=== PATIENT | female | born 1945 | race Caucasian/White ===

== ENCOUNTER 2016-05-24 18:20 | Inpatient (IN) | payer MEDICARE, OTHER ==
[~2016-05-24] VITALS: Ht 157.5 cm; Wt 60.2 kg
[~2016-05-24 18:20] MED LIST: ASPIRIN 81M81 MG/TA2 PO; CALCIUM500 MG PO; CLARITIN 1010 MG/TAB PO; EPA1000 MG PO; HYZAAR 25 MG-101 TAB PO; LEVAQUIN 750MG750 M1 PO; LOPRESSOR 225 MG/TAB PO; NATURAL E400 IU PO; PROAIR HFA0.09 MG/AC IH; RT ADVAIR 228 DISKUS IH; RT SPIRIVA18 MCG IH; SINGULAIR 110 MG/TAB PO; TOPROL XL 25MG25 MG PO; VITAMIN C500 MG PO; VITAMIN D1000 IU PO; XANAX 0.5MG0.5 MG PO; XANAX 1MG1 MG PO
[2016-05-24 18:32] VITALS: BP 141/60; PULSE 100; TEMP 97.2
[2016-05-24] MEDS ORDERED: PRAVACHOL10 MG PO (18:49)
[2016-05-24] MEDS ORDERED: KLOR-CON 1010 MEQ PO (18:50)
[2016-05-24] MEDS ORDERED: CALCIUM 600MG+D1 TAB PO (18:55)
[2016-05-24] MEDS ORDERED: ASPIRIN 81M81 MG/TA2 PO (18:56)
[2016-05-24 20:46] VITALS: BP 118/52; PULSE 94; TEMP 97
[2016-05-24 21:40] LABS: CREATININE, serum 0.83 mg/dL (0.52-1.25)
[2016-05-25 00:59] VITALS: BP 124/50; PULSE 108; TEMP 97.4
[2016-05-25 05:12] VITALS: BP 119/45; PULSE 87; TEMP 98.2
[2016-05-25 07:52] LABS: MEAN CELL VOLUME 78 fl (80.0-100.0); MEAN CORPUSCULAR HGB CONC 33 g/dl (33.0-37.0); MEAN PLATELET VOLUME 9.7 fl (7.4-10.4); PLATELET COUNT 350 K/mm3 (130-400); RED BLOOD COUNT 3.94 M/mm3 (4.10-5.30); REDCELL DISTRIBUTION WIDTH-CV 16.6 % (11.5-14.5); WHITE BLOOD COUNT 7.7 K/mm3 (4.8-10.8)
[2016-05-25 08:00] LABS: ADD PATHOLOGY DIFF REVIEW NO; HEMATOCRIT 30.9 % (37.0-47.0); HEMOGLOBIN 10.1 g/dl (12.5-16.0); MEAN CORPUSCULAR HEMOGLOBIN 26 pg (27.0-31.0)
[2016-05-25 08:12] LABS: CALCIUM 9.1 mg/dL (8.4-10.2); CREATININE, serum 0.75 mg/dL (0.52-1.25); POTASSIUM 4.1 mmol/L (3.4-5.0)
[2016-05-25 08:27] VITALS: BP 133/59; PULSE 103; TEMP 97.6
[2016-05-25 08:29] LABS: BAND 11 % (0-10); BURR CELLS 1+; METAMYELOCYTE 1 % (0-0); NEUTROPHILS 80 % (42.0-75.2); PLATELET ESTIMATE NORMAL (NORMAL); SCHISTOCYTES 1+; TOTAL CELLS COUNTED 100
[2016-05-25 17:23] VITALS: BP 108/56; PULSE 100; TEMP 97.5
[2016-05-25 18:17] LABS: PH 6 (5-8); SQUAMOUS EPITHELIAL 0-2 /hpf; URINE APPEARANCE Clear; URINE BACTERIA None Seen /hpf; URINE BILIRUBIN Negative (NEGATIVE); URINE BLOOD Negative (NEGATIVE); URINE COLOR Yellow; URINE GLUCOSE 1+ (NEGATIVE); URINE KETONE Negative (NEGATIVE); URINE RBC 0-2 /hpf; URINE UROBILINOGEN Negative (NEGATIVE); URINE WBC 0-2 /hpf
[2016-05-25 20:00] VITALS: TEMP 98
[2016-05-25 20:36] VITALS: BP 125/41; PULSE 101
[2016-05-26] VITALS (7 sets, daily range): BP systolic 102–151; BP diastolic 51–84; PULSE 94–122; TEMP 97.1–101.5
[2016-05-27 04:19] VITALS: BP 151/75; PULSE 117; TEMP 101.1
[2016-05-27 07:25] LABS: MEAN CELL VOLUME 80 fl (80.0-100.0); MEAN CORPUSCULAR HGB CONC 32 g/dl (33.0-37.0); MEAN PLATELET VOLUME 9.6 fl (7.4-10.4); PLATELET COUNT 273 K/mm3 (130-400); RED BLOOD COUNT 3.28 M/mm3 (4.10-5.30); REDCELL DISTRIBUTION WIDTH-CV 17.2 % (11.5-14.5); WHITE BLOOD COUNT 11.7 K/mm3 (4.8-10.8)
[2016-05-27 07:27] LABS: HEMATOCRIT 26.2 % (37.0-47.0); HEMOGLOBIN 8.5 g/dl (12.5-16.0); MEAN CORPUSCULAR HEMOGLOBIN 26 pg (27.0-31.0)
[2016-05-27 07:38] LABS: BAND 9 % (0-10); MYELOCYTE 2 % (0-0); NEUTROPHILS 86 % (42.0-75.2); PLATELET ESTIMATE NORMAL (NORMAL); TOTAL CELLS COUNTED 100
[2016-05-27 07:39] LABS: ADD PATHOLOGY DIFF REVIEW YES; OVALOCYTES 2+; SCHISTOCYTES 1+
[2016-05-27 10:28] VITALS: BP 150/76; PULSE 79; TEMP 100.5
[2016-05-27 15:34] VITALS: BP 156/57; PULSE 118; TEMP 101.6
[2016-05-27 21:01] VITALS: BP 125/66; PULSE 96; TEMP 99.7
[2016-05-28 00:18] VITALS: BP 151/88; PULSE 103; TEMP 100.8
[2016-05-28 04:15] VITALS: BP 147/77; PULSE 108; TEMP 100.6
[2016-05-28 08:04] VITALS: BP 144/75; PULSE 98; TEMP 97.8
[2016-05-28 08:26] LABS: PATHOLOGY DIFF REVIEW OK
[2016-05-28 13:39] VITALS: BP 143/61; PULSE 92; TEMP 100.6
[2016-05-28 16:09] VITALS: BP 125/80; PULSE 105; TEMP 98.7
[2016-05-28 21:09] VITALS: BP 137/86; PULSE 117; TEMP 100.5
[2016-05-29] VITALS (12 sets, daily range): BP systolic 130–185; BP diastolic 60–101; PULSE 96–116; TEMP 98.8–100.7
[2016-05-30 04:22] VITALS: BP 139/83; PULSE 101; TEMP 98.1
[2016-05-30 06:28] LABS: BASO % 0.1 % (0.0-2.0); EOS # 0.1 (0.0-0.7); EOS % 0.7 % (0-4.0); GRAN # 8.7 (1.4-6.5); GRAN % 86.7 % (42.2-75.2); LYMPH # 0.6 (1.2-3.4); LYMPH % 5.7 % (20.0-51.0); MEAN CELL VOLUME 78 fl (80.0-100.0); MEAN CORPUSCULAR HGB CONC 33 g/dl (33.0-37.0); MEAN PLATELET VOLUME 9.5 fl (7.4-10.4); MONO # 0.6 (0.1-0.6); MONO % 5.9 % (1.7-9.3); PLATELET COUNT 252 K/mm3 (130-400); RED BLOOD COUNT 3.15 M/mm3 (4.10-5.30); REDCELL DISTRIBUTION WIDTH-CV 17.6 % (11.5-14.5)
[2016-05-30 06:33] LABS: HEMATOCRIT 24.6 % (37.0-47.0); HEMOGLOBIN 8.1 g/dl (12.5-16.0); MEAN CORPUSCULAR HEMOGLOBIN 26 pg (27.0-31.0)
[2016-05-30 06:38] LABS: CALCIUM 8.4 mg/dL (8.4-10.2); CREATININE, serum 0.88 mg/dL (0.52-1.25); MAGNESIUM 1.3 mg/dL (1.6-2.3); PHOSPHOROUS 3.7 mg/dL (2.5-4.5); POTASSIUM 3.1 mmol/L (3.4-5.0)
[2016-05-30 07:31] VITALS: BP 143/73; PULSE 105; TEMP 98.9
[2016-05-30 10:49] LABS: PH 5 (5-8); SQUAMOUS EPITHELIAL 0-2 /hpf; URINE APPEARANCE Hazy; URINE BACTERIA None Seen /hpf; URINE BILIRUBIN Negative (NEGATIVE); URINE BLOOD Negative (NEGATIVE); URINE COLOR Yellow; URINE GLUCOSE Negative (NEGATIVE); URINE KETONE Negative (NEGATIVE); URINE RBC 20-50 /hpf; URINE UROBILINOGEN Negative (NEGATIVE)
[2016-05-30 11:36] VITALS: BP 162/90; PULSE 114; TEMP 98.9
[2016-05-30 12:23] LABS: INR 1.2 (0.8-3.0); PROTHROMBIN TIME 13.4 SECONDS (9.7-12.8)
[2016-05-30 13:57] LABS: PLEURAL FLUID - PMN 30.9 % (0-25)
[2016-05-30 13:58] LABS: PLEURAL FLUID APPEARANCE HAZY; PLEURAL FLUID COLOR YELLOW
[2016-05-30 13:59] LABS: PLEURAL FLUID RIGHT SIDE
[2016-05-30 14:05] LABS: GLUCOSE,PLEURAL FLUID 85 mg/dL
[2016-05-30 15:40] VITALS: BP 149/45; PULSE 120; TEMP 100.4
[2016-05-30 19:31] VITALS: BP 131/70; PULSE 106; TEMP 98.7
[2016-05-31] VITALS (7 sets, daily range): BP systolic 109–145; BP diastolic 50–94; PULSE 100–125; TEMP 98.4–101.3
[2016-05-31 05:31] LABS: POTASSIUM 3.9 mmol/L (3.4-5.0)
[2016-05-31 15:48] LABS: MTB COMPLEX Negative (())
[2016-06-01 05:17] VITALS: BP 128/93; PULSE 113; TEMP 100.2
[2016-06-01 08:39] LABS: POTASSIUM 4.5 mmol/L (3.4-5.0)
[2016-06-01 08:41] VITALS: BP 139/86; PULSE 124; TEMP 98.3
[2016-06-01 10:26] LABS: BASO % 0.1 % (0.0-2.0); EOS # 0.1 (0.0-0.7); EOS % 1.4 % (0-4.0); GRAN # 6.5 (1.4-6.5); GRAN % 81.4 % (42.2-75.2); LYMPH # 0.7 (1.2-3.4); LYMPH % 8.3 % (20.0-51.0); MEAN CELL VOLUME 80 fl (80.0-100.0); MEAN CORPUSCULAR HGB CONC 33 g/dl (33.0-37.0); MEAN PLATELET VOLUME 10.3 fl (7.4-10.4); MONO # 0.6 (0.1-0.6); PLATELET COUNT 248 K/mm3 (130-400); RED BLOOD COUNT 3.12 M/mm3 (4.10-5.30); REDCELL DISTRIBUTION WIDTH-CV 18.2 % (11.5-14.5)
[2016-06-01 10:29] LABS: HEMATOCRIT 24.9 % (37.0-47.0); HEMOGLOBIN 8.1 g/dl (12.5-16.0); MEAN CORPUSCULAR HEMOGLOBIN 26 pg (27.0-31.0)
[2016-06-01 10:40] LABS: ADJUSTED CALCIUM 10.5 mg/dL (8.4-10.2); ALBUMIN 2.5 gm/dL (3.5-5.0); BILIRUBIN,TOTAL 0.7 mg/dL (0.0-1.0); CALCIUM 9.3 mg/dL (8.4-10.2); CREATININE, serum 0.72 mg/dL (0.52-1.25); MAGNESIUM 1.8 mg/dL (1.6-2.3); TOTAL PROTEIN 5.5 gm/dL (6.4-8.2)
[2016-06-01 12:19] VITALS: BP 149/97; PULSE 112; TEMP 98.9
[2016-06-01 15:48] VITALS: BP 111/58; PULSE 128; TEMP 100.3
[2016-06-01 20:31] VITALS: BP 140/72; PULSE 111; TEMP 99.8
[2016-06-01 23:31] VITALS: BP 151/61; PULSE 99; TEMP 99.1
[2016-06-02 06:56] VITALS: BP 141/79; PULSE 117; TEMP 99.8
[2016-06-02 07:49] LABS: BASO % 0.2 % (0.0-2.0); EOS # 0.1 (0.0-0.7); EOS % 0.9 % (0-4.0); GRAN # 8.7 (1.4-6.5); GRAN % 86.1 % (42.2-75.2); LYMPH % 5.7 % (20.0-51.0); MEAN CELL VOLUME 80 fl (80.0-100.0); MEAN CORPUSCULAR HGB CONC 32 g/dl (33.0-37.0); MEAN PLATELET VOLUME 10.2 fl (7.4-10.4); MONO # 0.6 (0.1-0.6); MONO % 6.4 % (1.7-9.3); PLATELET COUNT 274 K/mm3 (130-400); RED BLOOD COUNT 3.06 M/mm3 (4.10-5.30); WHITE BLOOD COUNT 10.1 K/mm3 (4.8-10.8)
[2016-06-02 08:03] LABS: HEMATOCRIT 24.4 % (37.0-47.0); HEMOGLOBIN 7.8 g/dl (12.5-16.0); MEAN CORPUSCULAR HEMOGLOBIN 25 pg (27.0-31.0)
[2016-06-02 08:04] LABS: LYMPH # 0.6 (1.2-3.4)
[2016-06-02 08:19] VITALS: BP 141/59; PULSE 117; TEMP 99.1
[2016-06-02 13:05] VITALS: BP 127/64; PULSE 107; TEMP 99.2
[2016-06-02 15:33] VITALS: BP 125/77; PULSE 113; TEMP 98.8
== END 2016-06-02 18:50 | disposition short-term general hospital (02) | DRG 853 ==
LOC: MEDICAL 18:20
PROVIDERS: Internal Medicine; Internal Medicine Pulmonary Disease; Nurse Practitioner Family
PROC: 0BBC8ZX Excision of Right Upper Lung Lobe, Via Natural or Artificial Opening Endoscopic, Diagnostic (ICD-10-PCS; principal; 2016-05-25 11:00)
PROC: 0W993ZX Drainage of Right Pleural Cavity, Percutaneous Approach, Diagnostic (ICD-10-PCS; 2016-05-29)
PROC: 0B948ZX Drainage of Right Upper Lobe Bronchus, Via Natural or Artificial Opening Endoscopic, Diagnostic (ICD-10-PCS; 2016-05-29)
PROC: 0B988ZX Drainage of Left Upper Lobe Bronchus, Via Natural or Artificial Opening Endoscopic, Diagnostic (ICD-10-PCS; 2016-05-29)
DX: A41.9 Sepsis, unspecified organism (principal); J18.9 Pneumonia, unspecified organism; J96.01 Acute respiratory failure with hypoxia; E87.1 Hypo-osmolality and hyponatremia; J90 Pleural effusion, not elsewhere classified; E44.0 Moderate protein-calorie malnutrition; J98.4 Other disorders of lung; J44.9 Chronic obstructive pulmonary disease, unspecified; I10 Essential (primary) hypertension; Z85.3 Personal history of malignant neoplasm of breast; Z87.891 Personal history of nicotine dependence; B97.29 Other coronavirus as the cause of diseases classified elsewhere
CPT/HCPCS: 99223-AI; 99232-AI; 99233-AI; 99239; C1751; J0456; J1450; J1644; J1650; J2060; J2543; J2704; J3370; J3475; J3480; J7030; J7050; J7120

== ENCOUNTER 2016-06-11 12:50 | Inpatient (IN) | payer MEDICARE, OTHER ==
[~2016-06-11] VITALS: Ht 157.5 cm; Wt 54.3 kg
[~2016-06-11 12:50] MED LIST changes: +CALCIUM 600MG+D1 TAB PO; +KLOR-CON 1010 MEQ PO; +PRAVACHOL10 MG PO
[2016-06-11 14:36] VITALS: BP 114/75; PULSE 99; TEMP 97.8
[2016-06-12 04:44] VITALS: BP 124/64; PULSE 77; TEMP 97.1
[2016-06-12 17:24] VITALS: PULSE 103; TEMP 97.6
[2016-06-12 18:00] VITALS: BP 113/59
[2016-06-13 04:32] VITALS: BP 125/63; PULSE 77; TEMP 99.2
[2016-06-13 07:01] LABS: CALCIUM 9.7 mg/dL (8.4-10.2); CREATININE, serum 0.55 mg/dL (0.52-1.25); MAGNESIUM 1.5 mg/dL (1.6-2.3); POTASSIUM 3.5 mmol/L (3.4-5.0)
[2016-06-13 08:14] LABS: BASO # 0.1 (0.0-0.2); BASO % 0.6 % (0.0-2.0); EOS # 0.1 (0.0-0.7); EOS % 0.7 % (0-4.0); GRAN # 6.8 (1.4-6.5); GRAN % 80.6 % (42.2-75.2); LYMPH # 0.4 (1.2-3.4); LYMPH % 4.2 % (20.0-51.0); MEAN CELL VOLUME 83 fl (80.0-100.0); MEAN CORPUSCULAR HGB CONC 33 g/dl (33.0-37.0); MEAN PLATELET VOLUME 9.3 fl (7.4-10.4); MONO # 1.1 (0.1-0.6); MONO % 12.6 % (1.7-9.3); PLATELET COUNT 560 K/mm3 (130-400); RED BLOOD COUNT 4.27 M/mm3 (4.10-5.30); REDCELL DISTRIBUTION WIDTH-CV 17.1 % (11.5-14.5); WHITE BLOOD COUNT 8.4 K/mm3 (4.8-10.8)
[2016-06-13 08:17] LABS: HEMATOCRIT 35.3 % (37.0-47.0); HEMOGLOBIN 11.5 g/dl (12.5-16.0); MEAN CORPUSCULAR HEMOGLOBIN 27 pg (27.0-31.0)
[2016-06-13 15:57] VITALS: BP 97/56; PULSE 92; TEMP 97.4
[2016-06-14 05:38] VITALS: BP 116/51; PULSE 102; TEMP 97.8
[2016-06-14 16:56] VITALS: BP 121/64; PULSE 109; TEMP 97.4
[2016-06-15 04:26] VITALS: BP 118/86; PULSE 93; TEMP 98.2
[2016-06-15 16:57] VITALS: BP 112/51; PULSE 93; TEMP 97.7
[2016-06-16 05:21] VITALS: BP 130/73; PULSE 83; TEMP 97.6
[2016-06-16 18:11] VITALS: BP 112/61; PULSE 83; TEMP 97.7
[2016-06-16 21:00] VITALS: BP 168/77; PULSE 81
[2016-06-17 06:00] VITALS: BP 136/68; PULSE 99; TEMP 99.4
[2016-06-17 16:56] VITALS: BP 106/60; PULSE 91; TEMP 97.8
[2016-06-18 06:10] VITALS: BP 133/76; PULSE 91; TEMP 97.9
[2016-06-18 08:10] LABS: CREATININE, serum 0.87 mg/dL (0.52-1.25); MAGNESIUM 1.8 mg/dL (1.6-2.3); POTASSIUM 3.8 mmol/L (3.4-5.0)
[2016-06-18 16:47] VITALS: BP 121/61; PULSE 86; TEMP 97.5
[2016-06-18 21:00] VITALS: BP 133/64; PULSE 88
[2016-06-19 07:23] VITALS: BP 144/85; PULSE 96; TEMP 98.4
[2016-06-19 16:59] VITALS: BP 118/65; PULSE 91; TEMP 97.6
[2016-06-20 04:21] VITALS: BP 131/75; PULSE 89; TEMP 97.5
[2016-06-20 17:10] VITALS: BP 124/50; PULSE 88; TEMP 98
[2016-06-21 04:29] VITALS: BP 139/58; PULSE 89; TEMP 97.2
[2016-06-21 17:37] VITALS: BP 105/47; PULSE 84; TEMP 97.9
[2016-06-22 05:57] VITALS: BP 115/50; PULSE 91; TEMP 97
[2016-06-22 16:30] VITALS: BP 128/61; PULSE 90; TEMP 98.5
[2016-06-23 04:14] VITALS: BP 124/44; PULSE 96; TEMP 98.2
[2016-06-23 16:13] VITALS: PULSE 86; TEMP 97.7
[2016-06-24 05:06] VITALS: BP 140/68; PULSE 82; TEMP 98.2
[2016-06-24 18:31] VITALS: BP 141/75; PULSE 87; TEMP 98
[2016-06-25 04:57] VITALS: BP 129/51; PULSE 68; TEMP 97.2
[2016-06-25 08:10] LABS: BASO # 0.1 (0.0-0.2); BASO % 0.5 % (0.0-2.0); EOS # 0.1 (0.0-0.7); EOS % 0.6 % (0-4.0); GRAN # 9.9 (1.4-6.5); GRAN % 83.2 % (42.2-75.2); HEMATOCRIT 38.3 % (37.0-47.0); HEMOGLOBIN 12.4 g/dl (12.5-16.0); LYMPH # 0.6 (1.2-3.4); LYMPH % 4.7 % (20.0-51.0); MEAN CELL VOLUME 85 fl (80.0-100.0); MEAN CORPUSCULAR HEMOGLOBIN 27 pg (27.0-31.0); MEAN CORPUSCULAR HGB CONC 32 g/dl (33.0-37.0); MEAN PLATELET VOLUME 10.3 fl (7.4-10.4); MONO # 1.2 (0.1-0.6); MONO % 9.7 % (1.7-9.3); PLATELET COUNT 395 K/mm3 (130-400); RED BLOOD COUNT 4.53 M/mm3 (4.10-5.30); REDCELL DISTRIBUTION WIDTH-CV 16.9 % (11.5-14.5); WHITE BLOOD COUNT 11.9 K/mm3 (4.8-10.8)
[2016-06-25 09:07] LABS: ALBUMIN 2.9 gm/dL (3.5-5.0); BILIRUBIN,TOTAL 1.6 mg/dL (0.0-1.0); CREATININE, serum 2.03 mg/dL (0.52-1.25); POTASSIUM 3.4 mmol/L (3.4-5.0)
[2016-06-25 09:19] LABS: ADJUSTED CALCIUM 15.5 mg/dL (8.4-10.2); CALCIUM 14.6 mg/dL (8.4-10.2)
[2016-06-25 18:20] VITALS: BP 106/67; PULSE 86; TEMP 97.8
[2016-06-25 19:12] LABS: PH 8 (5-8); SQUAMOUS EPITHELIAL 0-2 /hpf; URINE APPEARANCE Hazy; URINE BACTERIA Rare /hpf; URINE BILIRUBIN Negative (NEGATIVE); URINE BLOOD Negative (NEGATIVE); URINE COLOR Amber; URINE GLUCOSE Negative (NEGATIVE); URINE KETONE Negative (NEGATIVE); URINE UROBILINOGEN Negative (NEGATIVE)
[2016-06-26 05:42] VITALS: BP 151/63; PULSE 88; TEMP 98
[2016-06-26 07:33] LABS: CALCIUM 12.1 mg/dL (8.4-10.2); CREATININE, serum 1.87 mg/dL (0.52-1.25); MAGNESIUM 2.9 mg/dL (1.6-2.3); POTASSIUM 3.3 mmol/L (3.4-5.0)
[2016-06-26 18:25] VITALS: BP 133/66; PULSE 90; TEMP 98.1
[2016-06-26 20:30] VITALS: BP 131/76; PULSE 88; TEMP 98.2
[2016-06-27 06:19] VITALS: BP 116/65; PULSE 95; TEMP 98.1
[2016-06-27 13:46] LABS: CALCIUM 10.6 mg/dL (8.4-10.2); CREATININE, serum 1.69 mg/dL (0.52-1.25); MAGNESIUM 2.5 mg/dL (1.6-2.3)
[2016-06-27 14:03] LABS: POTASSIUM 2.9 mmol/L (3.4-5.0)
[2016-06-27 17:42] VITALS: BP 123/32; PULSE 102; TEMP 98.2
[2016-06-28 03:30] VITALS: BP 150/67; PULSE 105; TEMP 98
[2016-06-28 08:33] LABS: CREATININE, serum 1.62 mg/dL (0.52-1.25); POTASSIUM 3.7 mmol/L (3.4-5.0)
[2016-06-28 16:17] LABS: BASO # 0.1 (0.0-0.2); BASO % 0.5 % (0.0-2.0); EOS # 0.1 (0.0-0.7); EOS % 0.5 % (0-4.0); GRAN # 12.1 (1.4-6.5); GRAN % 82.9 % (42.2-75.2); LYMPH # 0.5 (1.2-3.4); LYMPH % 3.3 % (20.0-51.0); MEAN CELL VOLUME 82 fl (80.0-100.0); MEAN CORPUSCULAR HGB CONC 33 g/dl (33.0-37.0); MEAN PLATELET VOLUME 9.5 fl (7.4-10.4); MONO # 1.5 (0.1-0.6); MONO % 10.5 % (1.7-9.3); PLATELET COUNT 336 K/mm3 (130-400); RED BLOOD COUNT 4.05 M/mm3 (4.10-5.30); REDCELL DISTRIBUTION WIDTH-CV 17.2 % (11.5-14.5); WHITE BLOOD COUNT 14.6 K/mm3 (4.8-10.8)
[2016-06-28 16:18] LABS: HEMOGLOBIN 10.8 g/dl (12.5-16.0); MEAN CORPUSCULAR HEMOGLOBIN 27 pg (27.0-31.0)
[2016-06-28 19:00] LABS: PH 6 (5-8); SQUAMOUS EPITHELIAL None Seen /hpf; URINE APPEARANCE Clear; URINE BACTERIA None Seen /hpf; URINE BILIRUBIN Negative (NEGATIVE); URINE BLOOD Negative (NEGATIVE); URINE COLOR Amber; URINE GLUCOSE Negative (NEGATIVE); URINE KETONE Negative (NEGATIVE); URINE UROBILINOGEN Negative (NEGATIVE); URINE WBC 0-2 /hpf
[2016-06-28 19:47] VITALS: BP 133/81; PULSE 98; TEMP 97.6
[2016-06-29 04:27] VITALS: BP 142/63; PULSE 83; TEMP 97.7
[2016-06-29 07:35] LABS: BASO # 0.1 (0.0-0.2); BASO % 0.4 % (0.0-2.0); EOS # 0.1 (0.0-0.7); GRAN # 9.9 (1.4-6.5); GRAN % 83.1 % (42.2-75.2); LYMPH % 4.7 % (20.0-51.0); MEAN CELL VOLUME 82 fl (80.0-100.0); MEAN CORPUSCULAR HGB CONC 32 g/dl (33.0-37.0); MEAN PLATELET VOLUME 9.7 fl (7.4-10.4); MONO # 1.1 (0.1-0.6); MONO % 9.1 % (1.7-9.3); PLATELET COUNT 354 K/mm3 (130-400); RED BLOOD COUNT 4.06 M/mm3 (4.10-5.30); REDCELL DISTRIBUTION WIDTH-CV 17.2 % (11.5-14.5); WHITE BLOOD COUNT 11.9 K/mm3 (4.8-10.8)
[2016-06-29 07:42] LABS: CALCIUM 9.4 mg/dL (8.4-10.2); CREATININE, serum 1.26 mg/dL (0.52-1.25); POTASSIUM 3.5 mmol/L (3.4-5.0)
[2016-06-29 08:07] LABS: HEMATOCRIT 33.4 % (37.0-47.0); HEMOGLOBIN 10.8 g/dl (12.5-16.0); MEAN CORPUSCULAR HEMOGLOBIN 27 pg (27.0-31.0)
[2016-06-29 08:08] LABS: LYMPH # 0.6 (1.2-3.4)
[2016-06-29 09:19] VITALS: BP 143/65; PULSE 106; TEMP 99.5
[2016-06-29 10:17] LABS: ARTERIAL BLD GAS O2 SATURATION 95.8 % (92-100); ARTERIAL BLD GAS TCO2 CT 23.7; ARTERIAL BLOOD GAS BASE EXCESS -0.6 (-2-2); ARTERIAL BLOOD GAS HCO3 22.7 meq/L (22-26); ARTERIAL BLOOD GAS PO2 81.5 mmHg (80-100); ARTERIAL BLOOD GAS pH 7.47 (7.35-7.45)
[2016-06-29 10:18] LABS: ATS? YES
[2016-06-29] MEDS ORDERED: ROCEPHIN VIA1 G/VIAL IV (15:12)
[2016-06-29] MEDS ORDERED: BIAXIN 500MG T500 MG PO (15:13)
[2016-06-29] MEDS ORDERED: VIBRAMYCININJ IV (15:13)
[2016-06-29] MEDS ORDERED: ETHAMBUTOL HYD400 MG PO (15:14)
[2016-06-29] MEDS ORDERED: MEGACE ORAL40 MG/ML PO (15:14)
[2016-06-29] MEDS ORDERED: RIFADIN300 MG PO (15:14)
[2016-06-29] MEDS ORDERED: IPRATROPIUM BROM3 M1 IH (15:15)
[2016-06-29] MEDS ORDERED: FERROUS SU325 MG/TAB PO (15:16)
[2016-06-29] MEDS ORDERED: HEPARIN SOD5000 U/ML SQ (15:16)
[2016-06-29] MEDS ORDERED: NORVASC 5MG5 MG/TAB PO (15:17)
[2016-06-29] MEDS ORDERED: TYLENOL 325MG325 MG PO (15:18)
[2016-06-29] MEDS ORDERED: XANAX .25M0.25 MG/TA PO (15:18)
[2016-06-29] MEDS ORDERED: K-TAB20 PO (15:19)
[2016-06-29] MEDS ORDERED: PHENERGAN W/CO120 M1 PO (15:19)
[2016-06-29] MEDS ORDERED: DULCOLAX S10 MG/SUPP RC (15:29)
[2016-06-29] MEDS ORDERED: FLONASE NASAL S16 GM NS (15:29)
[2016-06-29] MEDS ORDERED: MAG-OX 400400 MG/TAB PO (15:29)
[2016-06-29] MEDS ORDERED: COLACE 100100 MG/CAP PO (15:30)
[2016-06-29] MEDS ORDERED: MIRALAX PA17 GM/Dose PO (15:30)
[2016-06-29] MEDS ORDERED: SENOKOT S 50 MG1 TAB PO (15:30)
[2016-06-29] MEDS ORDERED: ZOFRAN 4MG T4 MG/TAB PO (15:31)
[2016-06-30 09:46] VITALS: BP 143/75; PULSE 105
== END 2016-06-29 16:00 | DRG 947 ==
PROVIDERS: Family Medicine; Internal Medicine; Internal Medicine Pulmonary Disease
DX: R53.81 Other malaise (principal); J18.9 Pneumonia, unspecified organism; J96.01 Acute respiratory failure with hypoxia; J44.0 Chronic obstructive pulmonary disease with (acute) lower respiratory infection; J90 Pleural effusion, not elsewhere classified; N17.9 Acute kidney failure, unspecified; E87.1 Hypo-osmolality and hyponatremia; E46 Unspecified protein-calorie malnutrition; I12.9 Hypertensive chronic kidney disease with stage 1 through stage 4 chronic kidney disease, or unspecified chronic kidney disease; N18.9 Chronic kidney disease, unspecified; J98.4 Other disorders of lung; L60.0 Ingrowing nail; R62.7 Adult failure to thrive; E83.42 Hypomagnesemia
CPT/HCPCS: 99222-AI; 99232-AI; 99233-AI; 99239; J0696; J1644; J7030; J7040

== ENCOUNTER 2016-06-29 16:00 | Inpatient (IN) | payer MEDICARE ==
[~2016-06-29] VITALS: Ht 157.5 cm; Wt 54.3 kg
[~2016-06-29 16:00] MED LIST changes: +BIAXIN 500MG T500 MG PO; +COLACE 100100 MG/CAP PO; +DULCOLAX S10 MG/SUPP RC; +ETHAMBUTOL HYD400 MG PO; +FERROUS SU325 MG/TAB PO; +FLONASE NASAL S16 GM NS; +HEPARIN SOD5000 U/ML SQ; +IPRATROPIUM BROM3 M1 IH; +K-TAB20 PO; +MAG-OX 400400 MG/TAB PO; +MEGACE ORAL40 MG/ML PO; +MIRALAX PA17 GM/Dose PO; +NORVASC 5MG5 MG/TAB PO; +PHENERGAN W/CO120 M1 PO; +RIFADIN300 MG PO; +ROCEPHIN VIA1 G/VIAL IV; +SENOKOT S 50 MG1 TAB PO; +TYLENOL 325MG325 MG PO; +VIBRAMYCININJ IV; +XANAX .25M0.25 MG/TA PO; +ZOFRAN 4MG T4 MG/TAB PO
[2016-06-29 18:21] VITALS: BP 116/89; PULSE 108; TEMP 99.1
[2016-06-29 18:26] VITALS: BP 116/89; PULSE 108; TEMP 99.1
[2016-06-29 22:10] VITALS: BP 126/47; PULSE 52; TEMP 98.2
[2016-06-30] VITALS (12 sets, daily range): BP systolic 114–170; BP diastolic 52–78; PULSE 70–109; TEMP 97.8–98.5
[2016-06-30 05:35] LABS: ARTERIAL BLOOD GAS PO2 69.8 mmHg (80-100); ARTERIAL BLOOD GAS pH 7.48 (7.35-7.45)
[2016-06-30 05:36] LABS: ALLEN TEST YES; ALLENS TEST RESULT PASS; ARTERIAL BLD GAS O2 SATURATION 94.4 % (92-100); ARTERIAL BLD GAS TCO2 CT 25.1; ARTERIAL BLOOD GAS BASE EXCESS 1.1 (-2-2); ARTERIAL BLOOD GAS HCO3 24.1 meq/L (22-26); ATS? YES
[2016-06-30 11:47] LABS: HEMATOCRIT 33.8 % (37.0-47.0); HEMOGLOBIN 11.1 g/dl (12.5-16.0); MEAN CELL VOLUME 83 fl (80.0-100.0); MEAN CORPUSCULAR HEMOGLOBIN 27 pg (27.0-31.0); MEAN CORPUSCULAR HGB CONC 33 g/dl (33.0-37.0); PLATELET COUNT 358 K/mm3 (130-400); RED BLOOD COUNT 4.08 M/mm3 (4.10-5.30); REDCELL DISTRIBUTION WIDTH-CV 17.5 % (11.5-14.5); WHITE BLOOD COUNT 12.6 K/mm3 (4.8-10.8)
[2016-06-30 11:56] LABS: ADD PATHOLOGY DIFF REVIEW NO
[2016-06-30 12:21] LABS: BAND 3 % (0-10); BASOPHIL 0 % (0-2); EOSINOPHIL 3 % (0-4); NEUTROPHILS 83 % (42.0-75.2); TOTAL CELLS COUNTED 100
[2016-06-30 12:24] LABS: ARTERIAL BLD GAS O2 SATURATION 94.4 % (92-100); ARTERIAL BLD GAS TCO2 CT 25.1; ARTERIAL BLOOD GAS BASE EXCESS 1.1 (-2-2); ARTERIAL BLOOD GAS HCO3 24.1 meq/L (22-26); ARTERIAL BLOOD GAS PHT 7.48 C (7.35-7.45); ARTERIAL BLOOD GAS PO2 69.8 mmHg (80-100); ARTERIAL BLOOD GAS PO2T 69.8 (80-100); ARTERIAL BLOOD GAS pH 7.48 (7.35-7.45); OXYHEMOGLOBIN 93.7 %
[2016-06-30 12:25] LABS: ADJUSTED CALCIUM 10.6 mg/dL (8.4-10.2); ALBUMIN 2.5 gm/dL (3.5-5.0); BILIRUBIN,TOTAL 1.4 mg/dL (0.0-1.0); CALCIUM 9.4 mg/dL (8.4-10.2); CREATININE, serum 1.14 mg/dL (0.52-1.25); MAGNESIUM 1.6 mg/dL (1.6-2.3); POTASSIUM 3.1 mmol/L (3.4-5.0); TOTAL PROTEIN 6.4 gm/dL (6.4-8.2)
[2016-06-30 12:26] LABS: ALLEN TEST YES; ALLENS TEST RESULT PASS; ATS? YES
[2016-07-01 01:52] VITALS: BP 136/54; PULSE 66; TEMP 97.8
[2016-07-01 05:18] LABS: ARTERIAL BLD GAS O2 SATURATION 97.1 % (92-100); ARTERIAL BLD GAS TCO2 CT 27.3; ARTERIAL BLOOD GAS BASE EXCESS 2.2 (-2-2); ARTERIAL BLOOD GAS HCO3 26.1 meq/L (22-26); ARTERIAL BLOOD GAS PHT 7.45 C (7.35-7.45); ARTERIAL BLOOD GAS PO2 96.6 mmHg (80-100); ARTERIAL BLOOD GAS PO2T 96.6 (80-100); ARTERIAL BLOOD GAS pH 7.45 (7.35-7.45); OXYHEMOGLOBIN 96.3 %
[2016-07-01 05:19] LABS: ALLEN TEST YES; ALLENS TEST RESULT PASS; ATS? YES
[2016-07-01 06:02] VITALS: BP 126/59; PULSE 100; TEMP 98.1
[2016-07-01 08:49] LABS: BASO % 0.3 % (0.0-2.0); EOS # 0.3 (0.0-0.7); EOS % 2.7 % (0-4.0); GRAN # 9.1 (1.4-6.5); GRAN % 79.5 % (42.2-75.2); LYMPH # 0.7 (1.2-3.4); LYMPH % 6.5 % (20.0-51.0); MEAN CELL VOLUME 84 fl (80.0-100.0); MEAN CORPUSCULAR HGB CONC 33 g/dl (33.0-37.0); MEAN PLATELET VOLUME 9.9 fl (7.4-10.4); MONO # 1.1 (0.1-0.6); MONO % 9.6 % (1.7-9.3); PLATELET COUNT 305 K/mm3 (130-400); RED BLOOD COUNT 3.77 M/mm3 (4.10-5.30); REDCELL DISTRIBUTION WIDTH-CV 17.6 % (11.5-14.5); WHITE BLOOD COUNT 11.4 K/mm3 (4.8-10.8)
[2016-07-01 09:07] LABS: CALCIUM 9.2 mg/dL (8.4-10.2); CREATININE, serum 1.03 mg/dL (0.52-1.25); POTASSIUM 3.3 mmol/L (3.4-5.0)
[2016-07-01 09:09] VITALS: BP 106/37; PULSE 94; TEMP 98.2
[2016-07-01 09:12] LABS: HEMATOCRIT 31.6 % (37.0-47.0); HEMOGLOBIN 10.3 g/dl (12.5-16.0); MEAN CORPUSCULAR HEMOGLOBIN 27 pg (27.0-31.0)
[2016-07-01 13:12] VITALS: BP 108/39; PULSE 104; TEMP 98.1
[2016-07-01 17:02] VITALS: BP 118/46; PULSE 103; TEMP 98.5
[2016-07-01 21:47] VITALS: BP 101/45; BP 144/71; PULSE 75; PULSE 98; TEMP 98.3; TEMP 98.7
[2016-07-02 05:45] VITALS: BP 12/46; BP 126/46; PULSE 99; TEMP 97.8
[2016-07-02 09:33] VITALS: BP 112/50; PULSE 89; TEMP 98.2
[2016-07-02 13:17] LABS: CALCIUM 8.3 mg/dL (8.4-10.2); CREATININE, serum 0.84 mg/dL (0.52-1.25); POTASSIUM 3.8 mmol/L (3.4-5.0)
[2016-07-02 13:27] VITALS: PULSE 96; TEMP 99
[2016-07-02 18:16] VITALS: BP 100/79; PULSE 106; TEMP 97.9
[2016-07-02 21:32] VITALS: BP 100/29; BP 115/64; PULSE 44; PULSE 76
[2016-07-03 02:16] VITALS: BP 122/34; PULSE 49; TEMP 97.2
[2016-07-03 04:58] VITALS: BP 132/65; PULSE 96; TEMP 97.5
[2016-07-03 09:32] VITALS: BP 141/54; PULSE 118; TEMP 97.6
[2016-07-03 13:41] VITALS: BP 113/45; PULSE 106; TEMP 98.2
[2016-07-03 18:13] VITALS: BP 116/69; PULSE 97; TEMP 98.2
[2016-07-03 21:45] VITALS: BP 116/48; PULSE 90; TEMP 97.9
[2016-07-04] VITALS (7 sets, daily range): BP systolic 107–138; BP diastolic 47–56; PULSE 96–126; TEMP 97.5–100.2
[2016-07-05 05:30] VITALS: BP 115/45; PULSE 61; TEMP 97.5
[2016-07-05 09:47] VITALS: BP 67/42; PULSE 104; TEMP 98.1
[2016-07-05 10:31] VITALS: BP 122/44; PULSE 102; TEMP 98.4
[2016-07-05 13:53] VITALS: BP 129/54; PULSE 110; TEMP 98.8
[2016-07-05 18:01] VITALS: BP 131/55; PULSE 116; TEMP 99.2
[2016-07-05 21:18] VITALS: BP 127/69; PULSE 82; TEMP 98
[2016-07-06 02:30] VITALS: BP 154/66; PULSE 113; TEMP 97.4
[2016-07-06 05:43] VITALS: BP 140/63; PULSE 113; TEMP 98.1
[2016-07-06] MEDS ORDERED: TAZTIA180 PO (09:56)
[2016-07-06] MEDS ORDERED: REMERON45 MG PO (09:58)
[2016-07-06] MEDS ORDERED: MULTIPLE VITAMI1 CAP PO (09:59)
[2016-07-06 10:27] VITALS: BP 110/54; PULSE 116; TEMP 98.4
[2016-07-06 11:09] VITALS: BP 110/54; PULSE 116; TEMP 98.4
== END 2016-07-06 12:34 | disposition swing bed (61) | DRG 189 ==
LOC: SURG 16:00
PROVIDERS: Family Medicine; Physician Assistant
PROC: 0B948ZX Drainage of Right Upper Lobe Bronchus, Via Natural or Artificial Opening Endoscopic, Diagnostic (ICD-10-PCS; principal; 2016-06-30)
PROC: 0B968ZX Drainage of Right Lower Lobe Bronchus, Via Natural or Artificial Opening Endoscopic, Diagnostic (ICD-10-PCS; 2016-06-30)
PROC: 0B9B8ZX Drainage of Left Lower Lobe Bronchus, Via Natural or Artificial Opening Endoscopic, Diagnostic (ICD-10-PCS; 2016-06-30)
DX: J96.02 Acute respiratory failure with hypercapnia (principal); J18.8 Other pneumonia, unspecified organism; E87.3 Alkalosis; E87.1 Hypo-osmolality and hyponatremia; E46 Unspecified protein-calorie malnutrition; A31.0 Pulmonary mycobacterial infection; J44.9 Chronic obstructive pulmonary disease, unspecified; I12.9 Hypertensive chronic kidney disease with stage 1 through stage 4 chronic kidney disease, or unspecified chronic kidney disease; N18.9 Chronic kidney disease, unspecified; Z87.891 Personal history of nicotine dependence; R62.7 Adult failure to thrive
CPT/HCPCS: 99222-AI; 99232-AI; 99233-AI; 99239; J0696; J1644; J2020; J2185; J2704; J3010; J7120